=== PATIENT | female | born 1970 | race Caucasian/White ===

== ENCOUNTER 2017-05-12 10:16 | Emergency (ER) | payer OTHER ==
[~2017-05-12 10:16] MED LIST: DICLOFENAC PO; NO MEDICATIONS
== END 2017-05-12 11:15 | disposition home or self-care (01) ==
LOC: SED 10:16
DX: S61.512A Laceration without foreign body of left wrist, initial encounter (principal); R03.0 Elevated blood-pressure reading, without diagnosis of hypertension; W26.8XXA Contact with other sharp object(s), not elsewhere classified, initial encounter; Y92.69 Other specified industrial and construction area as the place of occurrence of the external cause; Y99.0 Civilian activity done for income or pay; Z23 Encounter for immunization
CPT/HCPCS: 12001; 90471; 90715; 99283